=== PATIENT | male | born 1970 | race Caucasian/White ===

== ENCOUNTER 2019-03-25 19:11 | Emergency (ER) | payer BC ==
[2019-03-26] MEDS ORDERED: Ketorolac INJ* 30 MG/ML 1 ML VIAL IM ONE (00:25)
--- NOTE | 2019-03-26 01:47 | ED ---
Adult Trauma - HPI Summary HPI Summary: Patient complains of swelling and pain to nose, pain and laceration to right knee and sternal chest pain after mechanical fall from height of 66 feet from ladder onto concrete. Denies any other pain, injury or symptoms. Medical history is none. No anti-coag. - History of Current Complaint Chief Complaint: EDHeadInjury Stated Complaint: FALL, SENT FROM [facility] PER PT Time Seen by Provider: 03/25/19 22:22 Hx Obtained From: Patient Mechanism of Injury: Blunt Trauma, Fall Ambulatory at the Scene: Yes Loss of Consciousness: no loss of consciousness Onset Severity: Severe Current Severity: Severe Pain Intensity: 9 Pain Scale Used: 0-10 Numeric Location: Head, Chest, Extremities Aggravating Factor(s): Nothing Alleviating Factor(s): Nothing Associated Signs & Symptoms: Positive: Negative - Allergy/Home Medications Allergies/Adverse Reactions: Allergies Allergy/AdvReac Type Severity Reaction Status Date / Time No Known Allergies Allergy Verified 09/22/17 11:20 PMH/Surg Hx/FS Hx/Imm Hx Endocrine/Hematology History: Denies: Hx Diabetes, Hx Thyroid Disease Cardiovascular History: Denies: Hx Hypertension, Hx Pacemaker/ICD Respiratory History: Denies: Hx Asthma, Hx Chronic Obstructive Pulmonary Disease (COPD) GI History: Denies: Hx Ulcer History: Denies: Hx Dialysis Sensory History: Reports: Hx Contacts or Glasses - GLASSES Denies: Hx Hearing Aid Opthamlomology History: Reports: Hx Contacts or Glasses - GLASSES Neurological History: Denies: Hx Developmental Delay Psychiatric History: Denies: Hx Autism, Hx Panic Disorder - Surgical History Surgery Procedure, Year, and Place: appy 28 yrs. 12/2012 LT SHOULDER SURGERY ROTATOR [facility]. RT SHOULDER ROTATOR [facility] 2014 Hx Anesthesia Reactions: No - Immunization History Date of Tetanus Vaccine: 5 YEARS AGO Immunizations Up to Date: Yes Infectious Disease History: No Infectious Disease History: Denies: Hx Hepatitis, Hx Human Immunodeficiency Virus (HIV), Traveled Outside the [place] in Last 30 Days - Family History Known Family History: Positive: Non-Contributory - Social History Alcohol Use: Daily Alcohol Amount: FEW BEERS/DAY Substance Use Type: Reports: None Smoking Status (MU): Former Smoker Type: Cigarettes Length of Time of Smoking/Using Tobacco: 16 YEARS Have You Smoked in the Last Year: No Review of Systems Constitutional: Negative Eyes: Negative Positive: Epistaxis Cardiovascular: Negative Respiratory: Negative Gastrointestinal: Negative Genitourinary: Negative Musculoskeletal: Other Skin: Other Neurological: Negative Psychological: Normal All Other Systems Reviewed And Are Negative: Yes Physical Exam - Summary Physical Exam Summary: Swelling to nose. No septal hematoma bilaterally. Neuro exam normal. No indication of trauma to mouth. Full range of motion of jaw and neck. Lymphatic palpation of neck, chest wall, back, abdomen. Patient moves to bilateral upper extremities freely and left lower extremity freely without indication of pain. Pain with flexion and extension of right knee. Laceration to right knee. PMS intact distally. Triage Information Reviewed: Yes Vital Signs On Initial Exam: Initial Vitals Temp Pulse Resp BP Pulse Ox 99.7 F 73 18 172/97 98 03/25/19 19:17 03/25/19 19:17 03/25/19 19:17 03/25/19 19:17 03/25/19 19:17 Vital Signs Reviewed: Yes Appearance: Positive: Well-Appearing Skin: Positive: Warm Head/Face: Positive: Normal Head/Face Inspection Eyes: Positive: Normal ENT: Positive: Normal ENT inspection Dental: Negative: Dental Fracture @, Bleeding Neck: Positive: Supple Respiratory/Lung Sounds: Positive: Clear to Auscultation Cardiovascular: Positive: Normal Abdomen Description: Positive: Nontender Musculoskeletal: Positive: Normal Neurological: Positive: Normal Psychiatric: Positive: Normal AVPU Assessment: Alert - [place] Coma Scale Best Eye Response: 4 - Spontaneous Best Motor Response: 6 - Obeys Commands Best Verbal Response: 5 - Oriented Coma Scale Total: 15 Procedures - Laceration/Wound Repair 1 Location: lower extremity Description: Linear Anesthesia: Local, 1.0% Length, Depth and Shape: 2cm x 1cm Betadine Prep?: Yes Irrigated w/ Saline (ccs): 300 Laceration/Wound Explored: clean Debridement: minimal Number of Sutures: 3 - 4. 0 Prolene. Layer Closure?: No Sterile Dressing Applied?: No Diagnostics - Vital Signs Vital Signs Temp Pulse Resp BP Pulse Ox 03/25/19 19:17 99.7 F 73 18 172/97 98 - Laboratory Lab Statement: Any lab studies that have been ordered have been reviewed, and results considered in the medical decision making process. Adult Trauma Course/Dx - Course Course Of Treatment: Patient complains of swelling and pain to nose, pain and laceration to right knee and sternal chest pain after mechanical fall from height of 66 feet from ladder onto concrete. Denies any other pain, injury or symptoms. Medical history is none. No anti-coag. Vital signs within normal limits. CT C-spine unremarkable. CT maxillofacial positive for nondisplaced mild nasal fracture. CT chest negative for sternal fracture. X-ray right knee negative for fracture. CT brain unremarkable. CT ribs and chest unremarkable. Laceration to right knee cleaned and repaired. Right knee Akbar wrapped by this provider. Rx for Bactrim and oxycodone. - Diagnoses Provider Diagnoses: Fall, Knee pain, acute, Sternal pain, Facial trauma, Nasal fracture Discharge - Sign-Out/Discharge Documenting (check all that apply): Patient Departure Patient Received Moderate/Deep Sedation with Procedure: No - Discharge Plan Condition: Stable Disposition: HOME Prescriptions: Oxycodone HCl 5 mg PO Q6H 3 Days #12 tablet MDD 4 tabs Sulfamethox/Trimethoprim DS* [Bactrim DS 800/160 TAB*] 1 tab PO BID 10 Days #20 tab Patient Education Materials: Nasal Fracture (ED), Knee Pain (ED) Referrals: Nickolas Orozco MD [Medical Doctor] - Abimael Wilson MD [Medical Doctor] - Romy Ledesma NP [Primary Care Provider] - Additional Instructions: Follow-up Thursday morning with ENT Dr. Wilson for further evaluation of nasal fracture. Left knee pain is not improving 1 week follow-up with orthopedics Dr. Ny for further evaluation. Take antibiotics as directed. Ice 15 minutes at a time every hour. Take ibuprofen or Tylenol during the day for pain. Use pain medication at night. Return to the ED for any new or worsening symptoms. - Billing Disposition and Condition Condition: STABLE Disposition: Home
[2019-03-26] MEDS ORDERED: Sulfamethox/Trimethoprim DS 800/160* TAB PO ONE (01:48)
[2019-03-26 02:09] VITALS: BP 141/80
== END 2019-03-26 01:54 | disposition home or self-care (01) ==
LOC: ED 19:11
DX: S02.2XXA Fracture of nasal bones, initial encounter for closed fracture (principal); S09.93XA Unspecified injury of face, initial encounter; M25.519 Pain in unspecified shoulder; M25.561 Pain in right knee; Z87.891 Personal history of nicotine dependence; W11.XXXA Fall on and from ladder, initial encounter
CPT/HCPCS: 12001; 70450; 70486; 71111; 71250; 72125; 96372; 99282; A9270-GY; J1885

== ENCOUNTER 2019-09-14 07:22 | Day surgery (SDC) | payer BC ==
--- NOTE | 2019-09-01 09:39 | HP ---
CC: Dr. Hobbs; Romy Ledesma NP * DATE OF ADMISSION: 09/14/2019. This patient is scheduled for Same Day Surgery admission by Dr. Hobbs. DATE OF PREOPERATIVE HISTORY AND PHYSICAL EXAMINATION: Saturday, August 31, 2019. ATTENDING PHYSICIAN: Dr. Ozzy Hobbs * (dictated by Ana Rosa Mary NP). CHIEF COMPLAINT: Right groin hernia. HISTORY OF PRESENT ILLNESS: The patient is a 49-year-old male who presented for evaluation with Dr. Hobbs on 07/01/2019. He had described a month of significant pain and noted a bulge in the right groin that improved with rest. He obtained a truss and this helped with the discomfort which he described as intermittent and usually at the end of the day. The patient works in construction. Dr. Hobbs examined the patient and noticed a right inguinal bulge consistent with a hernia that is easily reducible. Dr. Hobbs recommended laparoscopic right inguinal hernia repair with mesh as a same day surgery procedure under general anesthesia and described the rationale for the surgery, the nature of the surgery, the relevant risks and benefits and today I reviewed the expected postoperative care and recovery. The patient has had a chance to ask questions and stated that he understands the information and is satisfied with the answers given to his questions. He will sign surgical consent on the day of surgery. PAST MEDICAL HISTORY: Osteoarthritis right hip. PAST SURGICAL HISTORY: Bilateral rotator cuff repairs. MEDICATIONS: 1. Aleve 220 mg one tablet b.i.d. prn. 2. Multivitamin daily. 3. Sildenafil prn. ALLERGIES: No known drug allergies. FAMILY HISTORY: No known anesthesia complications, bleeding tendencies or clotting disorders. SOCIAL HISTORY: He is single and works in construction. He is a nonsmoker and occasionally drinks alcohol. REVIEW OF SYSTEMS: Constitutional: No fevers, chills, excessive fatigue or weight loss. General: No previous anesthesia complications. History of deep vein thrombosis or pulmonary embolism. No bleeding tendencies or history of blood transfusions. Endocrine: No diabetes or thyroid disease. Respiratory: No dyspnea on exertion. No chronic cough. Cardiovascular: No anginal chest pain or palpitations. Gastrointestinal: No nausea, vomiting, diarrhea, GI bleeding, constipation, or change in bowel habits. Genitourinary: No dysuria. Musculoskeletal: Osteoarthritis right hip. Currently in physical therapy. Otherwise normal strength and tone. Integumentary: No chronic rashes or skin changes. Neurologic: No headache, blurred vision, areas of focal weakness or numbness. Psychiatric: No reported anxiety, depression, or insomnia. PHYSICAL EXAMINATION GENERAL: The patient is a 49-year-old male, well-developed, well-nourished, in no acute distress. VITAL SIGNS: Height 71 inches, weight 203 pounds, body mass index 28.3. Blood pressure 122/68, pulse 60 and regular, respiratory rate 16, temperature 97.7 tympanic. SKIN: Warm, dry, intact. HEENT: Benign. NECK: Supple. No cervical lymphadenopathy. BACK: No CVA tenderness. LUNGS: Breath sounds bilaterally clear and equal. HEART: Regular rate and rhythm. No murmurs or rubs appreciated. ABDOMEN: Active bowel sounds, soft, nondistended, nontender throughout. Inguinal exam done by Dr. Hobbs. Right inguinal bulge consistent with a hernia that is easily reducible. No evidence of left inguinal hernia. Testicles are normally descended without lesion. EXTREMITIES: Warm without edema or skin ulceration. RECTAL: Deferred. NEUROLOGIC: Alert and oriented times three. Steady gait. IMPRESSION: Right inguinal hernia. PLAN: Same Day Surgery admission to Dr. Hobbs's service on Saturday, September 14, 2019 for laparoscopic right inguinal hernia repair with mesh. DRU MARY, MARIO ALBERTO [id number] #: [id number] DESTINY
[~2019-09-14 07:22] MED LIST: Buffered Lidocaine 1% SYRIN* 1 ML/SYRINGE INTRADERM ONE; Famotidine IV* 10 MG/ML 2 ML (20 mg) IV ONE; Lactated Ringers 1000 ML Bag* 1,000 ML IV SCH
[2019-09-14] MEDS ORDERED: Famotidine IV* 10 MG/ML 2 ML (20 mg) ONE (07:52)
[2019-09-14] MEDS ORDERED: ceFAZolin 2 GM in NS PREMIX(*) 2 GM/100 ML BAG IVPB ONE (07:53)
[2019-09-14] MEDS ORDERED: Lidocaine 2% PF * 5 ML VIAL ONE (07:56)
[2019-09-14] MEDS ORDERED: Midazolam* 1 MG/ML 5 ML VIAL (5 MG) ONE (07:56)
[2019-09-14] MEDS ORDERED: Dexamethasone IV* 4 MG/ML 1 ML (4 MG) ONE (07:56)
[2019-09-14] MEDS ORDERED: Propofol* 10 MG/ML 20 ML BTL ONE ×2 (07:56→08:02)
[2019-09-14] MEDS ORDERED: fentaNYL* 50 MCG/ML 2 ML VIAL (100 MCG VIAL) ONE ×2 (07:56→10:08)
[2019-09-14] MEDS ORDERED: Ondansetron INJ* 2 MG/ML VIAL ONE (07:56)
[2019-09-14] MEDS ORDERED: Rocuronium* 10 MG/ML VIAL ONE (07:56)
[2019-09-14] MEDS ORDERED: Ketorolac INJ* 30 MG/ML 1 ML VIAL ONE (07:57)
[2019-09-14] MEDS ORDERED: Bupivacaine 0.25% EPI 200,000* 30 ML SDV ONE (08:24)
[2019-09-14] MEDS ORDERED: oxyCODONE/Acetamin 5/325 MG* TAB PO PRN (09:28)
[2019-09-14] MEDS ORDERED: fentaNYL* 50 MCG/ML 2 ML VIAL (100 MCG VIAL) IV PRN (09:28)
[2019-09-14] MEDS ORDERED: Naloxone* 0.4 MG/ML 1 ML VIAL IV PRN (09:28)
[2019-09-14] MEDS ORDERED: Ondansetron INJ* 2 MG/ML VIAL IV PRN (09:28)
[2019-09-14] MEDS ORDERED: Sugammadex * 200 MG/2 ML VIAL IV PUSH ONE (10:14)
[2019-09-14] MEDS ORDERED: Bacitracin OINTMENT* 0.5% 0.5 oz TUBE ONE (10:22)
--- NOTE | 2019-09-14 10:46 | OP ---
Operative Report - Blank - Operative Report Date of Operation: 09/14/19 Note: Operative Note Preoperative Dx:right inguinal hernia Postoperative Dx:right inguinal hernia Procedure: laparoscopic right inguinal hernia repair with mesh Anesthesia: GET Surgeon:Anjel BAXTER Assist: Jeremie WASSERMAN EBL: < 25cc Specimen: none Fluids: 1800cc LR Drain: none Findings: as above
[2019-09-14 11:32] VITALS: BP 140/72
--- NOTE | 2019-09-15 02:23 | OP ---
CC: Primary care doctor; [facility] * DATE OF OPERATION: 09/14/19 - [facility] DATE OF : 66 SURGEON: Ozzy Hobbs MD [employer] MEMBER: LUX Ruiz ANESTHESIOLOGIST: Dr. Manzo. ANESTHESIA: General anesthesia. PRE-OP DIAGNOSIS: Right inguinal hernia. POST-OP DIAGNOSIS: Right inguinal hernia. OPERATIVE PROCEDURE: Laparoscopic right inguinal hernia repair with mesh. ESTIMATED BLOOD LOSS: Minimal. FLUIDS: Crystalloid fluid given 1800 cc. DRAINS: None. DESCRIPTION OF PROCEDURE: The patient was identified in the preoperative area. He was marked appropriately and taken to the operating room and placed on the operating table in supine position. Preoperative antibiotics were given. Sequential devices were placed on bilateral lower extremities and general anesthesia was induced. The patient's lower abdomen was clipped off hair, prepped and draped in standard surgical fashion. A time-out was performed. An infraumbilical incision was made. This was deepened down to the anterior fascia on the right, which was incised and the rectus pillar retracted laterally and the preperitoneal space freed up and a balloon dissector inserted down to the pubic symphysis. This was then allowed to inflate under the vision of the camera and the preperitoneal plane was opened up. We then removed the balloon dissector and placed in a blunted 12-mm port and allowed the preperitoneal plane to insufflate to a pressure of 12 mmHg. The patient tolerated the insufflation well. Camera was inserted and blunt camera dissection was also utilized to free up the midline. Next, two 5-mm trocars were placed in the lower midline. We then turned our attention to the right groin. The Anshu's on both the left and right were identified. There was no direct hernia. The epigastric vessels were isolated and maintained anteriorly while the space of Bog[place] was cleared up laterally. Next, the peritoneum extending towards the internal ring was grasped and we bluntly dissected this free from the spermatic structures. We did enter into the peritoneum and utilized a clip law tutor to reapproximate this. This hernia sac was significant and we continued to dissect this out of the inguinal space until it could be completely placed posteriorly. The spermatic structures were isolated and identified. There was no evidence of bleeding. We did identify that the peritoneum extending up towards the inguinal canal had been violated and this is a very large rent, approximately 5 cm. We were able to do additional blunt dissection very posteriorly in the area of Bogros clearing up the space over the nerves. Again, hemostasis was excellent. Then, next we used a 5 mm clip law tutor to reapproximate this peritoneum at this site. This was not in the sac itself, but rather the portion of peritoneum extending towards the sac that had been in the inguinal canal. No cord lipoma was identified. Next, a large Bard 3D max for the right side was placed into the preperitoneal plane. It was allowed to unfurl. It was tacked to Anshu's ligament and also laterally. We picked up the hernia sac and tacked this also to the portion of the mesh that we were looking at as it covered the full myopectineal orifice. The trocars were removed under direct vision. The peritoneal plane was allowed to collapse and trocars were removed under direct vision. Attention was then turned towards the posterior fascia. This was elevated and incised and a large amount of gas was exited. We then placed the blunt trocar into the abdomen, which was then insufflated to a pressure of 15 mmHg and we placed a camera into this. In review, we could see a portion of the peritoneum violated as well. This is the main rent we had seen earlier, but we did not fully close it laterally. Two 5 mm trocars were inserted along the lower midline where we had previously made the skin incisions and then we were able to grasp this peritoneum and reapproximate it to itself with a 5 mm clip law tutor. Once this was performed, we looked at the left side. There was no hernia. The abdomen was allowed to collapse. Trocars were removed under direct vision. We closed the anterior fascia with 0-Vicryl sutures in a figure- of-eight fashion using 2 stitches in all and then closed all 3 skin incisions with 4-0 Monocryl followed by subcuticular sutures and sterile dressing. The patient tolerated the procedure well and was transferred to the PACU in stable condition. [id number]/[id number] #: [id number] DESTINY
== END 2019-09-14 12:00 | disposition home or self-care (01) ==
LOC: OR 07:22
PROVIDERS: ATTEND Surgery
DX: K40.90 Unilateral inguinal hernia, without obstruction or gangrene, not specified as recurrent (principal); M16.11 Unilateral primary osteoarthritis, right hip; G47.33 Obstructive sleep apnea (adult) (pediatric)
CPT/HCPCS: A9270-GY; C1781; J0690; J1100; J1885; J2250; J2405; J2704; J3010